=== PATIENT | female | born 1935 ===

== ENCOUNTER → 2020-12-17 | Outpatient (CLI) | payer MEDICARE, BC ==
[~2020-12-17] VITALS: Ht 167.6 cm; Wt 89.5 kg
[~2020-12-17] MED LIST: ARICEPT10 MG PO; COREG 3.123.125 MG/T PO; EXELON13.3TDM; KLOR-CON 88 ME1 PO; LASIX 40MG TABL40 MG PO; NAMENDA XR 21MG PO; NORVASC 10MG10 MG PO; PREVALITE4 GM/5.5 G PO; ZYLOPRIM 100MG100 MG PO
[2020-12-17 12:26] VITALS: BP 133/78; PULSE 76
[2020-12-17 13:00] VITALS: BP 138/82; PULSE 81
== END ==
LOC: COL.RAD 11:36
DX: R22.1 Localized swelling, mass and lump, neck (principal)
CPT/HCPCS: 32140